=== PATIENT | male | born 1980 | race Caucasian/White ===

== ENCOUNTER 2018-10-27 01:52 | Emergency (ER) | payer MEDICAID, OTHER ==
[~2018-10-27] VITALS: Ht 170.2 cm; Wt 110.0 kg
[2018-10-27] MEDS ORDERED: ibuprofen tablet 400 MG TABLET PO ONE (02:35)
[2018-10-27] MEDS ORDERED: HYDROcodone/acetaminophen 10/325mg tab PO ONE (02:35)
[2018-10-27] MEDS ORDERED: IBUP-1986 PO (02:39)
[2018-10-27] MEDS ORDERED: HYDR-4353 PO (02:39)
--- NOTE | 2018-10-27 02:52 | NUR ---
Patient resting comfortably on gurney, reports intermitient right ankle pain 8/10 worse when he moves it. I just gave, Edna & Nabil and will place short leg splint.
[2018-10-27 03:21] VITALS: BP 167/90
== END 2018-10-27 03:25 | disposition home or self-care (01) ==
LOC: ER 01:52
DX: M76.61 Achilles tendinitis, right leg (principal); J44.9 Chronic obstructive pulmonary disease, unspecified; G89.29 Other chronic pain; Z88.8 Allergy status to other drugs, medicaments and biological substances; Z79.899 Other long term (current) drug therapy
CPT/HCPCS: 29515; 99283

== ENCOUNTER 2023-05-23 09:37 | Observation (INO) | payer OTHER, BC ==
[2023-05-22 10:42] LABS: BILIRUBIN,URINE SMALL (Neg); CLARITY,URINE CLEAR (Clear); COLOR,URINE YELLOW (Yellow); GLUCOSE, URINE >=1000 mg/dl (Neg); KETONES,URINE TRACE mg/dl (Neg); LEUKOCYTE ESTERASE ,URINE NEGATIVE (Neg); NITRITES, URINE NEGATIVE (Neg); OCCULT BLOOD,URINE NEGATIVE (Neg); PH,URINE 5.5 (4.8-8.0); PROTEIN,URINE NEGATIVE (Neg); UROBILINOGEN,URINE 0.2 E.U/dL (0.2-1.0)
[2023-05-22 10:47] LABS: BASOPHILS % (AUTO) 0.9 % (0-1); EOSINOPHILS # (AUTO) 0.2 X10'3 (0-0.9); LYMPHOCYTES # (AUTO) 0.5 X10'3 (1.1-4.8); LYMPHOCYTES % (AUTO) 10.3 % (21-51); MEAN CORPUSCULAR HEMOGLOBIN 28.5 PG (27.0-31.0); MEAN CORPUSCULAR HGB CONC 34.4 g/dL (33.0-36.5); MEAN CORPUSCULAR VOLUME 82.7 FL (78-98); MEAN PLATELET VOLUME 8.2 FL (7.4-10.4); MONOCYTES # (AUTO) 0.4 X10'3 (0-0.9); MONOCYTES % (AUTO) 8.7 % (2-12); NEUTROPHILS # (AUTO) 3.7 X10'3 (1.8-7.7); NEUTROPHILS % (AUTO) 76.1 % (42-75); PRE OP HEMOGLOBIN 16.2 g/dL (14.0-17.9); PRE OP PLATELET COUNT 177 X10'3 (140-440); PRE OP WHITE BLOOD COUNT 4.9 10'3 (4.8-10.8); RED BLOOD COUNT 5.68 X10'6 (4.70-6.10); RED CELL DISTRIBUTION WIDTH 13.9 % (11.5-14.5)
[2023-05-22 10:48] LABS: UA COLLECTION TYPE CLN CATCH MIDSTREAM
[2023-05-22 10:50] LABS: BACTERIA,URINE NONE SEEN /HPF (Neg); MUCUS STRANDS MODERATE /LPF (Neg); RBC,URINE NONE SEEN /HPF (0-2); SQUAMOUS EPITHELIAL CELL,UR FEW /LPF (FEW); WBC,URINE 0-4 /HPF (0-4)
[2023-05-22 11:02] LABS: PRE OP PROTIME 11.2 SECONDS (9.0-12.0)
[2023-05-22 11:17] LABS: ALBUMIN 4.1 G/DL (3.4-5.0); ALBUMIN/GLOBULIN RATIO 1.4 (1.1-1.5); ALKALINE PHOSPHATASE 86 IU/L (46-116); BLOOD UREA NITROGEN 13 MG/DL (7-18); BUN/CREATININE RATIO 14.1 (10.0-20.0); CALCIUM 8.6 MG/DL (8.5-10.1); CHLORIDE 100 MMOL/L (99-107); CREATININE 0.92 MG/DL (0.60-1.10); HEMOGLOBIN A1C 8.9 % (4.5-6.2); PRE OP ALT 78 U/L (30-65); PRE OP ANION GAP 11 (8-16); PRE OP AST 41 U/L (10-37); PRE OP POTASSIUM 4.2 MMOL/L (3.4-5.1); PRE OP SODIUM 137 MMOL/L (135-145); TOTAL CARBON DIOXIDE 26.4 MMOL/L (24-32); TOTAL PROTEIN 7.1 G/DL (6.4-8.2); eGFR > 90 ML/MIN
[2023-05-22 11:26] LABS: PRE OP GLUCOSE 338 MG/DL (70-104)
[2023-05-23] VITALS (22 sets, daily range): BP systolic 134–160; BP diastolic 76–99; PULSE 67–102; RESP 13–20; TEMP 97.2–98.3; O2SAT 92–98
[~2023-05-23] VITALS: Ht 170.2 cm; Wt 117.9 kg
[2023-05-23] MEDS: cefazolin 2gm/D5W 100mL 100 ML IV ONE (05:30)
[~2023-05-23 09:37] MED LIST: ACET-1025 PO; INDO50CA96 PO; INSU100I98 SQ; OXYC-481 PO; SITA25TA3 PO; heparin 10,000 units/1 ML INJ ONE
[2023-05-23] MEDS: famotidine 20mg tablet PO ONE (10:42)
[2023-05-23] MEDS: ringers solution, lacted 1,000 ML IV SCH ×3 (10:42→19:45)
[2023-05-23] MEDS ORDERED: sevoflurane 250ml liquid IH ONE (11:45)
[2023-05-23] MEDS ORDERED: midazolam 1 mg/ML 2ml injection ONE (11:47)
[2023-05-23] MEDS ORDERED: fentaNYL /PF 50mcg/ml 5ml ampule ONE (11:48)
[2023-05-23] MEDS ORDERED: propofol inj 20 ML IV ONE (11:58)
[2023-05-23] MEDS ORDERED: ondansetron/PF 4mg/2ml inj ONE (11:58)
[2023-05-23] MEDS ORDERED: rocuronium 10mg/ml inj IV ONE ×2 (11:58→12:24)
[2023-05-23] MEDS ORDERED: LIDOcaine 2% (20mg/ml) 5ml vial ONE (11:58)
[2023-05-23] MEDS ORDERED: dexamethasone sod phosphate 4mg/ml inj. ONE (11:58)
[2023-05-23] MEDS ORDERED: acetaminophen 1,000mg/100ml IV 100 ML IV ONE (12:00)
[2023-05-23] MEDS ORDERED: morphine 2 MG/ML inj. syringe IV PRN (12:20)
[2023-05-23] MEDS ORDERED: fentaNYL/PF 50MCG/1 ML 2ML syringe IV PRN (12:20)
[2023-05-23] MEDS ORDERED: ondansetron/PF 4mg/2ml inj IV PRN (12:20)
[2023-05-23] MEDS ORDERED: hydrALAZINE 20mg/ml inj. IV PRN ×2 (12:20→18:10)
[2023-05-23] MEDS ORDERED: labetalol 20mg/4ml (5mg/ml) syringe IV PRN (12:20)
[2023-05-23] MEDS ORDERED: sugammadex 200mg/2ml injection IV ONE (12:25)
[2023-05-23] MEDS ORDERED: BUPIVACAINE liposomal/PF 13.3 MG/ML vial IM ONE (12:52)
[2023-05-23] MEDS ORDERED: BUPIVAcaine 0.5% inj/PF 30 ML ONE (12:52)
[2023-05-23] MEDS ORDERED: naloxone 0.4 mg/ml inj IV PRN (13:10)
[2023-05-23] MEDS: fentaNYL/PF 50MCG/1 ML 2ML syringe IV PRN (13:29)
[2023-05-23] MEDS: morphine 4 MG/ML inj SYRINge IV PRN (13:57)
[2023-05-23] MEDS: HYDROcodone/acetaminophen 10/325mg tab PO PRN (14:06)
[2023-05-23] MEDS: potassium CL 20mEq in D5-1/2NS 1,000 ML IV SCH (15:25)
[2023-05-23] MEDS: HYDROmorphone inj. 0.5 MG/0.5 ML DISP.SYRIN IV PRN (15:26)
[2023-05-23] MEDS: ondansetron/PF 4mg/2ml inj IV PRN (15:30)
[2023-05-23] MEDS: ceFAZolin inj. 1,000 MG in dextrose 5%-water 50ml 50 ML IV SCH (16:57)
[2023-05-23] MEDS: ketorolac trometh. 30mg/ml inj. IV SCH (19:46)
[2023-05-23] MEDS ORDERED: dextrose 50%-water 50ml dispensing syringe IV PRN ×2 (21:50)
[2023-05-23] MEDS ORDERED: glucagon, human recombinant 1mg kit SUBCUT PRN (21:50)
[2023-05-23] MEDS ORDERED: DEXTROSE 15 GM of carb/4 tabs (each vial/BOTTLE has 4 tablets) PO PRN ×2 (21:50)
[2023-05-23] MEDS: insulin glargine (Lantus) pen - multi-dose SQ SCH (22:17)
[2023-05-23] MEDS: insulin Lispro (HumaLOG) vial - multi-dose SQ SCH (22:21)
[2023-05-23] MEDS: MESSAGE TO PHARMACY PO ONE (22:24)
[2023-05-24] VITALS (8 sets, daily range): BP systolic 117–132; BP diastolic 68–73; PULSE 53–70; RESP 16–20; TEMP 96.5–98.5; O2SAT 94–99
[2023-05-24 03:26] LABS: BASOPHILS % (AUTO) 0.3 % (0-1); EOSINOPHILS % (AUTO) 0.2 % (0-6); HEMATOCRIT 40.9 % (42.0-52.0); LYMPHOCYTES # (AUTO) 0.5 X10'3 (1.1-4.8); LYMPHOCYTES % (AUTO) 6.7 % (21-51); MEAN CORPUSCULAR HEMOGLOBIN 28.5 PG (27.0-31.0); MEAN CORPUSCULAR HGB CONC 34.3 g/dL (33.0-36.5); MEAN PLATELET VOLUME 8.4 FL (7.4-10.4); MONOCYTES # (AUTO) 0.6 X10'3 (0-0.9); MONOCYTES % (AUTO) 7.4 % (2-12); NEUTROPHILS # (AUTO) 6.9 X10'3 (1.8-7.7); NEUTROPHILS % (AUTO) 85.4 % (42-75); PLATELET COUNT 173 X10'3 (140-440); RED BLOOD COUNT 4.92 X10'6 (4.70-6.10); RED CELL DISTRIBUTION WIDTH 13.4 % (11.5-14.5)
[2023-05-24 09:29] LABS: ALANINE AMINOTRANSFERASE 65 U/L (12-78); ALBUMIN 3.3 G/DL (3.4-5.0); ALBUMIN/GLOBULIN RATIO 1.1 (1.1-1.5); ALKALINE PHOSPHATASE 68 IU/L (46-116); ANION GAP 7 (8-16); ASPARTATE AMINO TRANSFERASE 28 U/L (10-37); BILIRUBIN,TOTAL 0.8 MG/DL (0.1-1.0); BLOOD UREA NITROGEN 11 MG/DL (7-18); BUN/CREATININE RATIO 13.4 (10.0-20.0); CALCIUM 8.3 MG/DL (8.5-10.1); CHLORIDE 100 MMOL/L (99-107); CREATININE 0.82 MG/DL (0.60-1.10); GLUCOSE 226 MG/DL (70-104); POTASSIUM 3.9 MMOL/L (3.5-5.1); SODIUM 135 MMOL/L (135-145); TOTAL CARBON DIOXIDE 28.2 MMOL/L (24-32); TOTAL PROTEIN 6.2 G/DL (6.4-8.2); eCRCL 112 ML/MIN; eGFR > 90 ML/MIN
[2023-05-24] MEDS: furosemide 20 MG/2 ML vial IV SCH (16:09)
[2023-05-24] MEDS: oxyCODONE/APAP 10/325mg tablet PO PRN (16:10)
[2023-05-24] MEDS ORDERED: albuterol 2.5 MG/3 ML nebule NEB PRN (19:05)
[2023-05-24] MEDS: indomethacin 25mg capsule PO SCH (19:23)
[2023-05-25] MEDS: albuterol 2.5 MG/3 ML nebule NEB SCH
[2023-05-25 00:02] VITALS: PULSE 55; RESP 16; O2SAT 97
[2023-05-25 00:07] VITALS: PULSE 74; RESP 16
[2023-05-25 06:12] LABS: BASOPHILS % (AUTO) 1.1 % (0-1); EOSINOPHILS # (AUTO) 0.2 X10'3 (0-0.9); EOSINOPHILS % (AUTO) 3.3 % (0-6); HEMOGLOBIN 13.4 g/dl (14.0-17.9); LYMPHOCYTES # (AUTO) 0.7 X10'3 (1.1-4.8); LYMPHOCYTES % (AUTO) 14.5 % (21-51); MEAN CORPUSCULAR HEMOGLOBIN 28.6 PG (27.0-31.0); MEAN CORPUSCULAR HGB CONC 34.4 g/dL (33.0-36.5); MEAN PLATELET VOLUME 8.3 FL (7.4-10.4); MONOCYTES # (AUTO) 0.5 X10'3 (0-0.9); NEUTROPHILS # (AUTO) 3.2 X10'3 (1.8-7.7); NEUTROPHILS % (AUTO) 70.1 % (42-75); PLATELET COUNT 141 X10'3 (140-440); RED CELL DISTRIBUTION WIDTH 13.7 % (11.5-14.5); WHITE BLOOD COUNT 4.5 X10'3 (4.5-11.0)
[2023-05-25 06:14] LABS: ALANINE AMINOTRANSFERASE 58 U/L (12-78); ALBUMIN 3.3 G/DL (3.4-5.0); ALBUMIN/GLOBULIN RATIO 1.2 (1.1-1.5); ALKALINE PHOSPHATASE 73 IU/L (46-116); ANION GAP 9 (8-16); ASPARTATE AMINO TRANSFERASE 33 U/L (10-37); BILIRUBIN,TOTAL 0.8 MG/DL (0.1-1.0); BLOOD UREA NITROGEN 16 MG/DL (7-18); BUN/CREATININE RATIO 19.5 (10.0-20.0); CALCIUM 7.9 MG/DL (8.5-10.1); CHLORIDE 98 MMOL/L (99-107); CREATININE 0.82 MG/DL (0.60-1.10); GLUCOSE 182 MG/DL (70-104); POTASSIUM 3.3 MMOL/L (3.5-5.1); SODIUM 137 MMOL/L (135-145); TOTAL CARBON DIOXIDE 30.4 MMOL/L (24-32); TOTAL PROTEIN 6.1 G/DL (6.4-8.2); eCRCL 112 ML/MIN; eGFR > 90 ML/MIN
[2023-05-25 07:14] VITALS: BP 129/69; PULSE 80; RESP 20; TEMP 97.8; O2SAT 96
[2023-05-25 08:31] VITALS: PULSE 86; RESP 16; O2SAT 97
[2023-05-25 08:39] VITALS: PULSE 84; RESP 18
[2023-05-25 10:00] VITALS: BP 111/70; PULSE 80; RESP 18; TEMP 98; O2SAT 95
[2023-05-25] MEDS ORDERED: potassium Cl 20 mEq SR tablet PO PRN (11:45)
[2023-05-25] MEDS: potassium Cl 20 mEq SR tablet PO PRN (11:53)
== END 2023-05-25 13:20 | disposition home or self-care (01) ==
LOC: PAS IN 10:21 → UNDOADMOB 10:21 → INTOOBSV 10:21 → PAS IN 13:11 → SUR 3N 16:06 → PAS IN 16:06 → UNDODISOB 05-25 13:20
PROVIDERS: ADMIT Surgery; ATTEND Surgery
DX: R59.9 Enlarged lymph nodes, unspecified (principal); G47.30 Sleep apnea, unspecified; E11.9 Type 2 diabetes mellitus without complications; E66.9 Obesity, unspecified; Z79.899 Other long term (current) drug therapy
CPT/HCPCS: 36415; 49010; 71046; 80053; 81001; 82948; 83036; 85025; 85610; 85730; 86870; 86880; 86885; 86900; 86901; 86902; 86905; 87081; 93005; 94640; 94760; 96365; 96366; 96372; 96375; 96376; C9290; G0378; J0131; J0690; J1100; J1170; J1644; J1815; J1885; J1940; J2250; J2270; J2405; J2704; J3010; J3480; J3490; J7030; J7060; J7120; A4615; A4618; A4649; A6212; A6258; A7000; S0020

== ENCOUNTER 2023-06-06 05:29 | Inpatient (IN) | payer OTHER, BC ==
[2023-06-03 11:32] LABS: BILIRUBIN,URINE NEGATIVE (Neg); CLARITY,URINE CLEAR (Clear); COLOR,URINE YELLOW (Yellow); GLUCOSE, URINE >=1000 mg/dl (Neg); KETONES,URINE NEGATIVE (Neg); LEUKOCYTE ESTERASE ,URINE NEGATIVE (Neg); NITRITES, URINE NEGATIVE (Neg); OCCULT BLOOD,URINE NEGATIVE (Neg); PH,URINE 5.5 (4.8-8.0); PROTEIN,URINE NEGATIVE (Neg); UROBILINOGEN,URINE 0.2 E.U/dL (0.2-1.0)
[2023-06-03 11:34] LABS: BASOPHILS # (AUTO) 0.1 X10'3 (0-0.2); EOSINOPHILS # (AUTO) 0.2 X10'3 (0-0.9); EOSINOPHILS % (AUTO) 3.1 % (0-6); LYMPHOCYTES # (AUTO) 0.6 X10'3 (1.1-4.8); LYMPHOCYTES % (AUTO) 11.1 % (21-51); MEAN CORPUSCULAR HEMOGLOBIN 28.4 PG (27.0-31.0); MEAN CORPUSCULAR HGB CONC 34.9 g/dL (33.0-36.5); MEAN CORPUSCULAR VOLUME 81.5 FL (78-98); MEAN PLATELET VOLUME 7.9 FL (7.4-10.4); MONOCYTES # (AUTO) 0.4 X10'3 (0-0.9); MONOCYTES % (AUTO) 8.5 % (2-12); NEUTROPHILS # (AUTO) 3.9 X10'3 (1.8-7.7); NEUTROPHILS % (AUTO) 76.3 % (42-75); PRE OP HEMATOCRIT 44.6 % (42.0-52.0); PRE OP HEMOGLOBIN 15.6 g/dL (14.0-17.9); PRE OP PLATELET COUNT 190 X10'3 (140-440); PRE OP WHITE BLOOD COUNT 5.1 10'3 (4.8-10.8); RED BLOOD COUNT 5.47 X10'6 (4.70-6.10); RED CELL DISTRIBUTION WIDTH 13.5 % (11.5-14.5)
[2023-06-03 11:38] LABS: MUCUS STRANDS MODERATE /LPF (Neg); SQUAMOUS EPITHELIAL CELL,UR MANY /LPF (FEW); UA COLLECTION TYPE CLN CATCH MIDSTREAM
[2023-06-03 11:39] LABS: RBC,URINE 0-2 /HPF (0-2); WBC CLUMPS,URINE FEW /HPF (NEGATIVE)
[2023-06-03 11:40] LABS: BACTERIA,URINE FEW /HPF (Neg)
[2023-06-03 11:46] LABS: ALBUMIN 3.9 G/DL (3.4-5.0); ALBUMIN/GLOBULIN RATIO 1.3 (1.1-1.5); ALKALINE PHOSPHATASE 85 IU/L (46-116); BLOOD UREA NITROGEN 16 MG/DL (7-18); CALCIUM 8.8 MG/DL (8.5-10.1); CHLORIDE 100 MMOL/L (99-107); CREATININE 0.89 MG/DL (0.60-1.10); PRE OP ALT 61 U/L (30-65); PRE OP ANION GAP 11 (8-16); PRE OP AST 32 U/L (10-37); PRE OP BILIRUB, TOTAL 0.8 MG/DL (0.0-1.0); PRE OP PROTIME 11.2 SECONDS (9.0-12.0); PRE OP SODIUM 137 MMOL/L (135-145); TOTAL CARBON DIOXIDE 26.1 MMOL/L (24-32); eGFR > 90 ML/MIN
[2023-06-03 11:47] LABS: PRE OP GLUCOSE 357 MG/DL (70-104)
[2023-06-03 11:55] LABS: HEMOGLOBIN A1C 8.8 % (4.5-6.2)
[2023-06-06] VITALS (25 sets, daily range): BP systolic 120–155; BP diastolic 67–91; PULSE 88–109; RESP 10–18; TEMP 97.3–98.2; O2SAT 90–98
[~2023-06-06] VITALS: Ht 170.2 cm; Wt 118.0 kg
[~2023-06-06 05:29] MED LIST changes: -heparin 10,000 units/1 ML INJ ONE
[2023-06-06] MEDS: cefazolin 2gm/D5W 100mL 100 ML IV ONE (05:30)
[2023-06-06] MEDS ORDERED: iohexol 300mg/ml 100ml inj. ONE (06:42)
[2023-06-06] MEDS ORDERED: BUPIVAcaine 2.5mg/ml inj 50ml vial (contains preservative) ONE (06:50)
[2023-06-06] MEDS ORDERED: INDOCYANINE GREEN 25 MG/10 ML VIAL IV ONE (06:50)
[2023-06-06] MEDS: famotidine 20mg tablet PO ONE (07:01)
[2023-06-06] MEDS: ringers solution, lacted 1,000 ML IV SCH ×2 (07:02→12:19)
[2023-06-06] MEDS ORDERED: dexmedetomidine 200mcg/2ml inj. IV ONE (07:42)
[2023-06-06] MEDS ORDERED: MIDAZolam 1 MG/ML 5ML VIAL ONE (07:52)
[2023-06-06] MEDS ORDERED: fentaNYL /PF 50mcg/ml 5ml ampule ONE ×2 (07:52→09:41)
[2023-06-06] MEDS ORDERED: dexamethasone sod phosphate 4mg/ml inj. ONE (07:53)
[2023-06-06] MEDS ORDERED: LIDOcaine 2% (20mg/ml) 5ml vial ONE (07:53)
[2023-06-06] MEDS ORDERED: propofol inj 20 ML IV ONE (07:53)
[2023-06-06] MEDS ORDERED: rocuronium 10mg/ml inj IV ONE ×4 (07:53→10:39)
[2023-06-06] MEDS ORDERED: morphine 2 MG/ML inj. syringe IV PRN ×2 (08:05→12:45)
[2023-06-06] MEDS ORDERED: fentaNYL/PF 50MCG/1 ML 2ML syringe IV PRN (08:05)
[2023-06-06] MEDS ORDERED: hydrALAZINE 20mg/ml inj. IV PRN (08:05)
[2023-06-06] MEDS ORDERED: labetalol 20mg/4ml (5mg/ml) syringe IV PRN (08:05)
[2023-06-06] MEDS ORDERED: ondansetron/PF 4mg/2ml inj IV PRN ×2 (08:05→12:45)
[2023-06-06] MEDS ORDERED: sevoflurane 250ml liquid IH ONE (08:17)
[2023-06-06] MEDS ORDERED: acetaminophen 1,000mg/100ml IV 100 ML IV ONE (09:05)
[2023-06-06] MEDS: BUPIVAcaine/PF 2.5mg/ml (0.25%) 10ml vial ONE (09:43)
[2023-06-06] MEDS: BUPIVACAINE liposomal/PF 13.3 MG/ML vial IM ONE (09:43)
[2023-06-06] MEDS ORDERED: albumin (Human) 5% 250ml 250 ML IV ONE (09:50)
[2023-06-06] MEDS ORDERED: ePHEDrine 50MG/ML INJ. ONE (10:24)
[2023-06-06] MEDS ORDERED: sugammadex 200mg/2ml injection IV ONE ×3 (11:14→11:15)
[2023-06-06] MEDS: morphine 4 MG/ML inj SYRINge IV PRN (12:19)
[2023-06-06] MEDS: fentaNYL/PF 50MCG/1 ML 2ML syringe IV PRN (12:32)
[2023-06-06] MEDS ORDERED: metoclopramide 5 mg/ml inj IV PRN (12:45)
[2023-06-06] MEDS ORDERED: albuterol 2.5 MG/3 ML nebule NEB PRN (12:45)
[2023-06-06] MEDS ORDERED: HYDROcodone/acetaminophen 10/325mg tab PO PRN (12:45)
[2023-06-06] MEDS: ketorolac trometh. 30mg/ml inj. IV STA (12:47)
[2023-06-06 12:55] LABS: ABG BASE EXCESS -1.6 mmol/L (-2.0-2.0); ABG HCO3 23.4 mmol/L (22.0-26.0); ABG OXYGEN SATURATION 98.2 % (94-97); ABG PH (T) 7.391 (7.340-7.440); ABG PO2 (T) 104.4 mmHg (75.0-100.0); FCOHb 1.1 % (0.0-3.9); FHHb 1.8 % (0.0-5.0); FLOW 10 L/min; FMetHb 0.1 % (0.0-1.5); MODE MASK - SIMPLE; PATIENT TEMPERATURE 36.1
[2023-06-06] MEDS: ketorolac tromethamine 15mg/ml inj. IV SCH (14:00)
[2023-06-06] MEDS: HYDROcodone/acetaminophen 10/325mg tab PO PRN (14:21)
[2023-06-06] MEDS: ceFAZolin inj. 1,000 MG in dextrose 5%-water 50ml 50 ML IV SCH (17:30)
[2023-06-06] MEDS: potassium cl 20mEq in 1/2 NS 1,000 ML IV SCH (17:31)
[2023-06-06] MEDS ORDERED: dextrose 50%-water 50ml dispensing syringe IV PRN ×2 (20:05)
[2023-06-06] MEDS ORDERED: glucagon, human recombinant 1mg kit SUBCUT PRN (20:05)
[2023-06-06] MEDS: insulin Lispro (HumaLOG) vial - multi-dose SQ SCH ×2 (20:05→21:00)
[2023-06-06] MEDS ORDERED: DEXTROSE 15 GM of carb/4 tabs (each vial/BOTTLE has 4 tablets) PO PRN ×2 (20:05)
[2023-06-06] MEDS: insulin glargine (Lantus) pen - multi-dose SQ SCH (21:00)
[2023-06-07] VITALS (10 sets, daily range): BP systolic 125–147; BP diastolic 74–81; PULSE 66–88; RESP 16–22; TEMP 97–98; O2SAT 96–98
[2023-06-07 05:43] LABS: BASOPHILS # (AUTO) 0.1 X10'3 (0-0.2); BASOPHILS % (AUTO) 0.6 % (0-1); EOSINOPHILS # (AUTO) 0.1 X10'3 (0-0.9); EOSINOPHILS % (AUTO) 1.2 % (0-6); HEMOGLOBIN 13.3 g/dl (14.0-17.9); LYMPHOCYTES # (AUTO) 0.7 X10'3 (1.1-4.8); LYMPHOCYTES % (AUTO) 8.2 % (21-51); MEAN CORPUSCULAR HEMOGLOBIN 28.8 PG (27.0-31.0); MEAN CORPUSCULAR HGB CONC 34.9 g/dL (33.0-36.5); MEAN CORPUSCULAR VOLUME 82.4 FL (78-98); MEAN PLATELET VOLUME 8.3 FL (7.4-10.4); MONOCYTES # (AUTO) 0.9 X10'3 (0-0.9); MONOCYTES % (AUTO) 10.8 % (2-12); NEUTROPHILS # (AUTO) 6.8 X10'3 (1.8-7.7); NEUTROPHILS % (AUTO) 79.2 % (42-75); PLATELET COUNT 195 X10'3 (140-440); RED BLOOD COUNT 4.62 X10'6 (4.70-6.10); RED CELL DISTRIBUTION WIDTH 13.6 % (11.5-14.5); WHITE BLOOD COUNT 8.6 X10'3 (4.5-11.0)
[2023-06-07 08:29] LABS: ALANINE AMINOTRANSFERASE 57 U/L (12-78); ALBUMIN 3.4 G/DL (3.4-5.0); ALBUMIN/GLOBULIN RATIO 1.2 (1.1-1.5); ALKALINE PHOSPHATASE 67 IU/L (46-116); ANION GAP 10 (8-16); ASPARTATE AMINO TRANSFERASE 29 U/L (10-37); BILIRUBIN,TOTAL 1.1 MG/DL (0.1-1.0); BLOOD UREA NITROGEN 13 MG/DL (7-18); BUN/CREATININE RATIO 18.6 (10.0-20.0); CALCIUM 8.3 MG/DL (8.5-10.1); CHLORIDE 100 MMOL/L (99-107); GLUCOSE 138 MG/DL (70-104); POTASSIUM 3.6 MMOL/L (3.5-5.1); SODIUM 138 MMOL/L (135-145); TOTAL CARBON DIOXIDE 28.2 MMOL/L (24-32); TOTAL PROTEIN 6.2 G/DL (6.4-8.2); eCRCL 131 ML/MIN; eGFR > 90 ML/MIN
[2023-06-07] MEDS: morphine 4 MG/ML inj SYRINge IV PRN (19:38)
[2023-06-07] MEDS ORDERED: oxyCODONE/APAP 5-325mg tablet PO PRN (20:05)
[2023-06-07] MEDS: oxyCODONE/APAP 10/325mg tablet PO PRN (22:06)
[2023-06-08] VITALS (11 sets, daily range): BP systolic 125–145; BP diastolic 68–86; PULSE 63–83; RESP 16–20; TEMP 97.1–98.2; O2SAT 94–98
[2023-06-08] MEDS ORDERED: mag hydrox/Alum hydrox/simeth 30ml oral suspension PO PRN (03:00)
[2023-06-08 05:57] LABS: BASOPHILS % (AUTO) 0.8 % (0-1); EOSINOPHILS # (AUTO) 0.3 X10'3 (0-0.9); EOSINOPHILS % (AUTO) 5.2 % (0-6); HEMATOCRIT 38.4 % (42.0-52.0); HEMOGLOBIN 13.1 g/dl (14.0-17.9); LYMPHOCYTES # (AUTO) 0.6 X10'3 (1.1-4.8); LYMPHOCYTES % (AUTO) 10.8 % (21-51); MEAN CORPUSCULAR HEMOGLOBIN 28.5 PG (27.0-31.0); MEAN CORPUSCULAR HGB CONC 34.2 g/dL (33.0-36.5); MEAN CORPUSCULAR VOLUME 83.4 FL (78-98); MONOCYTES # (AUTO) 0.7 X10'3 (0-0.9); MONOCYTES % (AUTO) 12.6 % (2-12); NEUTROPHILS % (AUTO) 70.6 % (42-75); PLATELET COUNT 162 X10'3 (140-440); RED CELL DISTRIBUTION WIDTH 13.3 % (11.5-14.5); WHITE BLOOD COUNT 5.6 X10'3 (4.5-11.0)
[2023-06-08 06:00] LABS: ALANINE AMINOTRANSFERASE 46 U/L (12-78); ALBUMIN 3.3 G/DL (3.4-5.0); ALBUMIN/GLOBULIN RATIO 1.1 (1.1-1.5); ALKALINE PHOSPHATASE 62 IU/L (46-116); ANION GAP 7 (8-16); ASPARTATE AMINO TRANSFERASE 21 U/L (10-37); BILIRUBIN,TOTAL 0.9 MG/DL (0.1-1.0); BLOOD UREA NITROGEN 12 MG/DL (7-18); BUN/CREATININE RATIO 17.1 (10.0-20.0); CALCIUM 8.2 MG/DL (8.5-10.1); CHLORIDE 102 MMOL/L (99-107); GLUCOSE 160 MG/DL (70-104); POTASSIUM 3.9 MMOL/L (3.5-5.1); SODIUM 139 MMOL/L (135-145); TOTAL CARBON DIOXIDE 30.5 MMOL/L (24-32); TOTAL PROTEIN 6.2 G/DL (6.4-8.2); eCRCL 131 ML/MIN; eGFR > 90 ML/MIN
[2023-06-08] MEDS: ceFAZolin/D5W- 1GM premix 50 ML IV SCH (18:07)
[2023-06-08] MEDS: furosemide 20 MG/2 ML vial IV SCH (19:37)
[2023-06-08] MEDS: insulin Lispro (HumaLOG) vial - multi-dose SQ SCH (21:14)
[2023-06-08] MEDS: traMADol 50MG tablet PO PRN (21:17)
[2023-06-09 02:00] VITALS: BP 150/86; PULSE 76; RESP 18; TEMP 98.6; O2SAT 97
[2023-06-09 06:00] VITALS: O2SAT 97
[2023-06-09 06:47] VITALS: BP 125/78; PULSE 67; RESP 16; TEMP 98.3; O2SAT 97
[2023-06-09 07:12] LABS: BASOPHILS # (AUTO) 0.1 X10'3 (0-0.2); BASOPHILS % (AUTO) 1.2 % (0-1); EOSINOPHILS # (AUTO) 0.5 X10'3 (0-0.9); EOSINOPHILS % (AUTO) 10.7 % (0-6); HEMATOCRIT 39.6 % (42.0-52.0); HEMOGLOBIN 13.6 g/dl (14.0-17.9); LYMPHOCYTES # (AUTO) 0.6 X10'3 (1.1-4.8); LYMPHOCYTES % (AUTO) 13.3 % (21-51); MEAN CORPUSCULAR HEMOGLOBIN 28.4 PG (27.0-31.0); MEAN CORPUSCULAR HGB CONC 34.4 g/dL (33.0-36.5); MEAN CORPUSCULAR VOLUME 82.7 FL (78-98); MONOCYTES # (AUTO) 0.5 X10'3 (0-0.9); MONOCYTES % (AUTO) 11.7 % (2-12); NEUTROPHILS # (AUTO) 2.9 X10'3 (1.8-7.7); NEUTROPHILS % (AUTO) 63.1 % (42-75); PLATELET COUNT 193 X10'3 (140-440); RED BLOOD COUNT 4.79 X10'6 (4.70-6.10); RED CELL DISTRIBUTION WIDTH 13.5 % (11.5-14.5); WHITE BLOOD COUNT 4.6 X10'3 (4.5-11.0)
[2023-06-09 07:28] VITALS: PULSE 70; RESP 16; O2SAT 97
[2023-06-09 07:40] LABS: ALANINE AMINOTRANSFERASE 44 U/L (12-78); ALBUMIN 3.3 G/DL (3.4-5.0); ALKALINE PHOSPHATASE 65 IU/L (46-116); ANION GAP 8 (8-16); ASPARTATE AMINO TRANSFERASE 22 U/L (10-37); BLOOD UREA NITROGEN 11 MG/DL (7-18); BUN/CREATININE RATIO 16.9 (10.0-20.0); CALCIUM 8.5 MG/DL (8.5-10.1); CHLORIDE 99 MMOL/L (99-107); CREATININE 0.65 MG/DL (0.60-1.10); GLUCOSE 168 MG/DL (70-104); POTASSIUM 3.7 MMOL/L (3.5-5.1); SODIUM 137 MMOL/L (135-145); TOTAL CARBON DIOXIDE 30.4 MMOL/L (24-32); TOTAL PROTEIN 6.5 G/DL (6.4-8.2); eCRCL 141 ML/MIN; eGFR > 90 ML/MIN
[2023-06-09 08:00] VITALS: RESP 18; O2SAT 95
[2023-06-09 12:05] VITALS: RESP 20
== END 2023-06-09 12:12 | disposition home or self-care (01) | DRG 983 ==
LOC: PAS IN 05:29 → PCU 3S 15:32
PROVIDERS: ADMIT Surgery; ATTEND Surgery
PROC: 0BBD4ZZ Excision of Right Middle Lung Lobe, Percutaneous Endoscopic Approach (ICD-10-PCS; 2023-06-06)
PROC: 0WBC4ZX Excision of Mediastinum, Percutaneous Endoscopic Approach, Diagnostic (ICD-10-PCS; 2023-06-06)
PROC: 8E0W4CZ Robotic Assisted Procedure of Trunk Region, Percutaneous Endoscopic Approach (ICD-10-PCS; 2023-06-06)
PROC: 0W9930Z Drainage of Right Pleural Cavity with Drainage Device, Percutaneous Approach (ICD-10-PCS; 2023-06-06)
PROC: BW241ZZ Computerized Tomography (CT Scan) of Chest and Abdomen using Low Osmolar Contrast (ICD-10-PCS; 2023-06-06)
PROC: 0BBC4ZZ Excision of Right Upper Lung Lobe, Percutaneous Endoscopic Approach (ICD-10-PCS; principal; 2023-06-06 08:17)
DX: R59.0 Localized enlarged lymph nodes (principal); R91.8 Other nonspecific abnormal finding of lung field
CPT/HCPCS: Z7506; Z7508; 36415; 36600; 71045; 71046; 71260; 80053; 81001; 82803; 82948; 83036; 85018; 85025; 85610; 85730; 86870; 86880; 86885; 86900; 86901; 87070; 87075; 87081; 87102; 93005; 94760; 97116; 97161; 97530; A4615; A4618; A6213; A6223; A6253; A6258; A6260; A6449; A7000; A7048; C9290; G0378; J0131; J0690; J1100; J1815; J1885; J1940; J2250; J2270; J2405; J2704; J3010; J3480; J3490; J7040; J7060; J7120; P9045; Q9967